=== PATIENT | male | born 1975 | race Caucasian/White ===

== ENCOUNTER 2019-05-12 20:51 | Emergency (ER) | payer SELFPAY ==
[~2019-05-12] VITALS: Ht 170.2 cm; Wt 100.8 kg
[2019-05-12 20:58] VITALS: Ht 170.2 cm; Wt 100.8 kg
[2019-05-12] MEDS ORDERED: KETOROLAC 15 MG INJ IV STA (22:12)
--- NOTE | 2019-05-12 23:02 | ERD ---
ER Documentation Chief Complaint Chief Complaint CP X'S 1 DAY HPI During the patient's encounter translation services were utilized Language: Occitan Source: In person 43-year-old male no significant past medical history presents to the emergency room with approximately 1 day of chest pain. He describes it is sharp, intermittent and nonpleuritic. He states that it occurred earlier in the afternoon. He states a constant symptomatology without exacerbating symptoms such as eating and walking, no exertional symptoms. No pleuritic pain, no calf swelling no recent travel immobilization or family history of DVT or pulmonary e mbolism. No family history of early cardiac disease. Patient denies any falls or trauma. ROS All systems reviewed and are negative except as per history of present illness. Medications Home Meds Active Scripts Ibuprofen* (Motrin*) 800 Mg Tab, 800 MG PO Q6H PRN for PAIN AND OR ELEVATED TEMP, #30 TAB Prov:MIKIE FRANCISCO MD 05/13/19 Allergies Allergies: Coded Allergies: No Known Allergy (Unverified , 05/12/19) PMhx/Soc Medical and Surgical Hx: pt denies Medical Hx, pt denies Surgical Hx Hx Alcohol Use: Yes (occassional) Hx Substance Use: No Hx Tobacco Use: No Smoking Status: Never smoker FmHx Family History: No diabetes, No coronary disease Physical Exam Vitals Vital Signs Date Temp Pulse Resp B/P (MAP) Pulse Ox O2 O2 Flow FiO2 Time Delivery Rate 05/13/19 69 16 139/86 99 Room Air 02:45 (103) 05/13/19 76 16 138/73 99 Room Air 00:08 (94) 05/12/19 Nasal 2 22:11 Cannula 05/12/19 82 16 126/80 100 Room Air 22:02 (95) 05/12/19 97.6 91 18 142/89 100 20:58 (106) Physical Exam General: Well developed, well nourished, no acute distress Head: Normocephalic, atraumatic. Eyes: Pupils equally reactive, EOM intact ENT: Moist mucous membranes Neck: Supple, no lymphadenopathy Respiratory: Lungs clear bilaterally, no distress Cardiovascular: RRR, no murmurs, rubs, or gallops Abdominal: Soft, non-tender, non-distended, no peritoneal signs : Deferred MSK: No edema, no unilateral swelling, 5/5 strength Neurologic: Alert and oriented, moving all extremities, normal speech, no focal weakness, no cerebellar signs Skin: No rash Psych: Normal mood Result Diagram: 05/12/196 05/12/196 Results 24 hrs Laboratory Tests Test 05/12/19 22:16 05/13/19 01:34 White Blood Count 5.6 10^3/ul Red Blood Count 4.95 10^6/ul Hemoglobin 13.9 g/dl Hematocrit 41.4 % Mean Corpuscular Volume 83.6 fl Mean Corpuscular Hemoglobin 28.1 pg Mean Corpuscular Hemoglobin Concent 33.6 g/dl Red Cell Distribution Width 12.7 % Platelet Count 199 10^3/UL Mean Platelet Volume 11.0 fl Immature Granulocytes % 0.400 % Neutrophils % 53.9 % Lymphocytes % 33.2 % Monocytes % 8.6 % Eosinophils % 3.2 % Basophils % 0.7 % Nucleated Red Blood Cells % 0.0 /100WBC Immature Granulocytes # 0.020 10^3/ul Neutrophils # 3.0 10^3/ul Lymphocytes # 1.9 10^3/ul Monocytes # 0.5 10^3/ul Eosinophils # 0.2 10^3/ul Basophils # 0.0 10^3/ul Nucleated Red Blood Cells # 0.0 10^3/ul Sodium Level 138 mmol/L Potassium Level 3.7 mmol/L Chloride Level 96 mmol/L Carbon Dioxide Level 29 mmol/L Anion Gap 13 Blood Urea Nitrogen 22 mg/dl Creatinine 0.95 mg/dl Est Glomerular Filtrat Rate mL/min > 60 mL/min Glucose Level 325 mg/dl Calcium Level 9.2 mg/dl Troponin I < 0.012 ng/ml < 0.012 ng/ml Current Medications Medications Dose Sig/Jerri Start Time Status Last (Trade) Ordered Route PRN Stop Time Admin Dose Reason Admin Ketorolac 15 mg ONCE STAT 05/12/19 DC 05/12/19 Tromethamine IV 22:12 22:22 (Toradol) 05/12/19 22:13 Procedures/MDM EKG, MONITORS, & DIAGNOSTIC IMAGING: EKG: I reviewed and interpreted a 12-lead EKG. Rhythm: Normal sinus rhythm ST Changes: No contiguous ST segment elevations T waves: No contiguous T wave inversions Impression: No evidence of acute cardiac ischemia Repeat EKG: EKG: I reviewed and interpreted a 12-lead EKG. Rhythm: Normal sinus rhythm ST Changes: No contiguous ST segment elevations T waves: No contiguous T wave inversions Impression: No evidence of acute cardiac ischemia Chest x-ray: I reviewed and interpreted a 1 view of the chest Mediastinum: No enlargement Cardiac silhouette: No cardiomegaly Airspace: Clear lung gomez bilaterally without evidence of pneumothorax Bones: No evidence of fracture PROCEDURES: None LAB INTERPRETATION: * Negative troponin x2 MEDICAL DECISION MAKING: The patient's history, physical exam and clinical presentation is atypical, constant and nonexertional and unlikely related to acute coronary syndrome. The patient has no risk factors for early coronary disease. Consider possible musculoskeletal versus pleurisy versus nonspecific chest pain. The patient meets the PERC RULE out criteria. Thus, less than 2% risk of pulmonary embolism with better alternative diagnosis. No indication for d-dimer or CT pulmonary angiogram at this time. Based on the patient's clinical exam and history and risk factors, I have a much lower clinical concern for pulmonary embolism, acute aortic dissection, pneumothorax, pneumonia, cardiac tamponade HEART Score: 0 MACE Rate: Less than 1.7% Shared Decision Making: We had a conversation regarding risk stratification, MACE rate, and the risks, benefits, alternatives of disposition planning options. Disposition planning: Serial enzyme and discharge ER COURSE: * Toradol given * Symptoms improved. Troponin negative x2. Low risk profile met. The patient can be safely discharged with close primary care follow-up. * Hyperglycemia noted. No DKA. The patient needs outpatient follow-up for diabetes testing and screening. CONSULTATION: None DISPOSITION PLAN: The patient does not have an identifiable emergent medical condition that warrants inpatient hospitalization at this time. The patient is deemed safe for discharge with outpatient follow-up. We discussed follow up with the patient's primary care doctor within 24 to 48 hours as needed. We also discussed return to the emergency room for worsening symptoms or worsening condition. Outpatient referral: None required Discharge Medications: Motrin Departure Diagnosis: Primary Impression: Chest pain Chest pain type: unspecified Qualified Codes: R07.9 - Chest pain, unspecified Additional Impression: Hyperglycemia Condition: Stable MIKIE FRANCISCO MD May 12, 2019 23:02
[2019-05-13] MEDS ORDERED: IBUP800T48 PO (02:42)
[2019-05-13 02:45] VITALS: BP 139/86; PULSE 69; RESP 16
== END 2019-05-13 02:54 | disposition home or self-care (01) ==
LOC: E/R 20:51
DX: R07.9 Chest pain, unspecified (principal); R40.2142 Coma scale, eyes open, spontaneous, at arrival to emergency department; R40.2362 Coma scale, best motor response, obeys commands, at arrival to emergency department; R73.9 Hyperglycemia, unspecified
CPT/HCPCS: 36415; 71045; 80048; 84484; 85025; 93005; 96374; 99285; J1885